=== PATIENT | female | born 1975 | race Caucasian/White ===

== ENCOUNTER 2022-08-28 15:08 | Outpatient (CLI) | payer SELFPAY ==
--- NOTE | 2022-08-28 15:23 | ECG_ITS ---
Measurements Intervals [place] Rate: 60 P: 62 NC: 211 QRS: 56 QRSD: 137 T: 53 QT: 406 QTc: 408 Interpretive Statements SINUS RHYTHM WITH FIRST DEGREE AV BLOCK INCOMPLETE RIGHT BUNDLE BRANCH BLOCK BORDERLINE ECG NO PREVIOUS ECG AVAILABLE FOR COMPARISON Electronically Signed On 08-28-2022 15:50:18 CDT by Marvin Del Rio D.O.
== END 2022-08-28 15:09 | disposition home or self-care (01) ==
PROVIDERS: Referring Provider Family Medicine; Visit Provider Anesthesiology
DX: I44.0 Atrioventricular block, first degree (principal); I45.10 Unspecified right bundle-branch block; F17.210 Nicotine dependence, cigarettes, uncomplicated
CPT/HCPCS: 93005

== ENCOUNTER 2022-09-03 03:11 | Day surgery (SDC) | payer OTHER, SELFPAY ==
[2022-08-24 14:38] VITALS: BMI 22.8
--- NOTE | 2022-08-24 14:57 | PC.NURSE ---
Report to the Outpatient Waiting Room, entrance under the green pavilion located off [facility], at time _0600 on date _09/03/22. Planned Procedure Time: _0730. Time changes happen often and if your time is changed the preop area will call you the afternoon before. - You and your visitor will be asked to self-screen and do not enter if you have any COVID symptoms. - A mask is optional within the hospital at this time. Patients may have clear liquids (water, carbonated beverages, clear teas, apple juice) until 3 hours prior to surgery with a maximum of 20 ounces. - No food from midnight until time of surgery - Infants may have breast milk until 4 hours before surgery, formula 6 hours prior to surgery. - Children will be allowed to drink immediately following surgery. If applicable, please bring a bottle or sippy cup to assist with drinking. Juice, water, soda, and popsicles are readily available. For infants on formula, please bring formula the day of surgery. Pacifiers are allowed. Take the following medications with a SIP of water the morning of surgery: __n/a DO NOT STOP ANY OF YOUR OTHER PRESCRIPTION MEDICATIONS PRIOR TO SURGERY ?EXCEPT THE FOLLOWING Medications to discontinue per physician __n/a Date to take last dose Please no make-up, nail romansh, hairspray, perfume, deodorant, or body powder the day of surgery. No jewelry (including any body piercings) or valuables the day of surgery, leave them at home. Please take a shower or bath the night before, or the morning of, surgery with an antibacterial soap. Wear comfortable, loose fitting clothing. Children are encouraged to wear pajamas. - Jewelry must be removed prior to entering the operating room. Rings and piercings that are not removed may be cut off. - The hospital will not accept responsibility for valuables. - Please leave all valuables, including medications, at home the day of surgery. If you are going home after surgery, a licensed fleet driver must drive you home. - NO public transportation without another adult if you receive anesthesia. - We recommend that an adult stay with you for 24 hours following discharge. - We also recommend that you do not drive, make important decision, drink alcoholic beverages, or take any drugs that were not prescribed by your health care provider for at least 24 hours after your discharge time. For Pediatric surgeries, we recommend two adults accompany the child home. Follow any additional instructions given to you from your surgeon. If you or anyone in your household have experienced Covid symptoms in the past week, please notify your surgeon or the nurse liaison at the phone number below for possible testing. Telephone instructions given to Becki Jewell_and asked if any additional questions and then verbalized understanding. Patient advised to call surgeon office or pre surgery nurse liaison [phone] if any additional questions.
[2022-09-03] VITALS (10 sets, daily range): BP systolic 94–123; BP diastolic 54–84; PULSE 64–88; RESP 13–20; TEMP 36.1–36.9; O2SAT 97–100
[2022-09-03] MEDS: LACTATED RINGERS 1,000 ML 30 ML IV CONT ×2 (06:28→11:36)
[2022-09-03 06:37] LABS: Urine Cotinine NEGATIVE
--- NOTE | 2022-09-03 06:58 | P.PNAN_ITS ---
Anes - Initial Pre Proc Eval Procedure: Operation Date: 09/03/22 07:30 Proposed Procedures p Abdominoplasty with Liposuction - Elbert Loredo MD Date/Time: 09/03/22 06:58 Surgeon: Elbert Loredo MD Pre Op Diagnosis: skin laxity Patient Data Age: 47 Gender: F Height: 1.73 m Weight: 66.4 kg Last Vital Signs Temp 36.6 C 09/03/22 06:11 Pulse 64 09/03/22 06:11 Resp 18 09/03/22 06:11 BP 94/64 L 09/03/22 06:11 Pulse Ox 99 09/03/22 06:11 O2 Del Method Room Air 09/03/22 06:11 Allergies Allergy/AdvReac Type Severity Reaction Status Date / Time Penicillins Allergy Intermediate VOMITING Verified 09/03/22 06:41 AND STOMACH CRAMPS Home Medications Medication Instructions Recorded Confirmed Type No Home Medications 08/24/22 09/03/22 History Laboratory Tests 09/03/22 06:12 Cotinine Negative Patient hx anesthesia problems: none Family hx anesthesia problems: none Results Review: All pre-operative results and documents have been reviewed as part of the pre- operative evaluation. [facility] Social History Social History Smoking packs per day: 1 Smoking cigarettes per day: 20.0 Years smoked: 30 Smoking pack-years: 30.00 Smoking status: Former smoker Tobacco type: cigarettes and e-cigarettes/vaping Alcohol intake: current Substance use: never Living arrangements: with family Spiritual care concerns: No Anes - Eval Final PreProcedure Day of Procedure 09/03/22 06:58 Patient weight: normal Heart: regular rate and rhythm Lungs: clear to auscultation Airway: Mallampati scale class II Neurological: alert and oriented Last oral intake: >/= 8 hours ASA classification: II Emergent: no Anesthetic plan: proceed Anesthesia type and monitoring: general ETT and standard monitoring Results Review: All pre-operative results and documents have been reviewed as part of the pre- operative evaluation. Informed Consent: The patient's anesthetic plan and its attendant risks and benefits were discussed with the patient/family/POA. Questions were solicited and answers provided to the satisfaction of the patient/family/POA.
--- NOTE | 2022-09-03 07:14 | WPDHPUPDATE1 ---
History and Physical Update Update Date/Time: 09/03/22 07:14 History and Physical has been reviewed, including an updated exam of the patient. There are NO changes in the patient's condition. Risks, benefits, and alternatives have been discussed and questions answered. Patient agrees to proceed with procedure.
--- NOTE | 2022-09-03 07:14 | W.PM.PROC2 ---
Procedure Note - Detailed Date of Procedure 09/03/22 Pre-op Diagnosis skin laxity Post-op Diagnosis Same Procedure Performed Progressive tension abdominoplasty with suction lipectomy Surgeon Elbert Loredo MD Anesthesia General Findings Lipoaspirate: 1250 cc Tissue removed: 714 grams Description of Procedure They are here today for abdominoplasty. Previously and again today the risks, benefits, alternatives were discussed in extensive detail. I wanted them to be very realistic about the risks involved as well as expectations. We discussed aftercare and what to monitor for. I was very upfront about the risks of wound breakdown leading to loss of skin, open wounds, and need for additional procedures with permanent abdominal deformity. We discussed DVT/PE risks and management. Made sure answered all of their questions to their satisfaction today and consent was obtained. They were marked in the preoperative holding area with their verification. The patient was taken to the operating room placed supine on the operating table. Anesthesia was provided by anesthesiology. A Lubin catheter was started. They were prepped and draped in a standard sterile fashion. A surgical time-out was taken. I placed the patient in a flexed position to verify the upper and lower markings would reach. I then placed supine. A thorough abdominal examination was completed. Stab incisions were made and tumescent solution infiltrated. Once adequate time was allowed for hemostasis a 5mm basket cannula was utilized in conjunction with 3mm multi hole cannula to complete suction lipectomy based on S.A.F.E. technique in multiple planes and passes. There were turned to bilateral lateral decubitus position with care taken to protect them for injury during this process. Suction lipectomy continued to result based on pre-operative planning, intra-operative observation, and rolling pinch test which were in full agreement. A 10 blade was used to make the upper incision. I continued dissection down to the level of fascia. Elevated just what was necessary for repair of the diastasis. I then again flexed the bed to verify the upper skin flap would reach the lower markings without tension. Once verified I placed her supine once again and a 10 blade used to make the lower incision. I elevated up to level the umbilicus and left the umbilicus intact on a well-vascularized stalk. The intervening tissue was removed. A 2 mm blunt cannula with 0.5% bupivicaine was injected deep to the fascia bilaterally. I plicated the diastasis recti using 0 PDO stratafix barbed suture. This was in 2 separate layers using 2 separate sutures as well. I repaired around the umbilicus leaving plenty of room for well-vascularized stalk of the umbilicus with 2-0 PDS. I also repaired lateral to the rectus using two layers of 0 PDO stratafix. The patient was flexed and starting from superior to inferior began plication using 2-0 Vicryl to obliterate all space in a standard progressive tension fashion. At the umbilicus I marked out the location of the skin and inset this with 3-0 Monocryl and 4-0 Vicryl. I continued the remainder of the plication using 2-0 Vicryl until I reached my lower planned scar line. I trimmed any excess skin of the upper flap making sure this was a tension-free closure. 15 Jacky drain placed. I then approximated using a 3 point suture with 2-0 Vicryl followed by 3-0 stratafix ,running subcuticular 4-0 Monocryl, and tissue glue. Fluffs and an abdominal binder were placed. The patient was transferred to the bed in a flexed position. Aw[place] and taken to the PACU without difficulty. All instrument and sponge counts were correct at the end of the case. Estimated Blood Loss 75 Drains Yes (15 Jacky) Packing No Pathology None sent Complications No immediate complications Condition Stable Disposition PACU
[2022-09-03] MEDS: TRANEXAMIC ACID 1,000MG/ISO100 1,000 MG/100 ML BAG 200 MG IVPB (07:20)
[2022-09-03] MEDS: SCOPOLAMINE 1.5 MG PATCH TRANSDERM (07:22)
[2022-09-03] MEDS: ceFAZolin 2 GM/D5W 50 ML 2 GM/50 ML BAG IVPB (07:30)
[2022-09-03] MEDS: BUPIVACAINE/EPINEPHRINE 0.25% 10 ML VIAL 60 ML INFILTRATE (08:25)
[2022-09-03] MEDS: HYDROmorphone HCL INJ (*CRX) 1 MG/ML SYR 0.5 MG IV PUSH ×2 (12:13→12:23)
--- NOTE | 2022-09-03 12:50 | ADMGEN ---
This patient, Becki Jewell, was admitted to OB 2nd Floor Room 289-00. Patient/family oriented to hospital policies and general routines including ID bracelet, bed and alarms, visiting hours, pain management, procedures, bathroom and other care routines, personal items, smoking policy, room service/diet, and visiting hours. Information on how to activate the Rapid Response Team has been discussed. Patient/Family are encouraged to report perceived risks to care and to ask questions if they do not understand what they are told or what they should do.
[2022-09-03] MEDS: LACTATED RINGERS 1,000 ML 125 ML IV CONT (13:20)
[2022-09-03] MEDS: KETOROLAC 10 MG TABLET PO ×2 (14:20→20:38)
[2022-09-03] MEDS: carisoprodoL (*CRX) 350 MG TABLET PO ×2 (14:20→20:39)
[2022-09-03] MEDS: oxyCODONE/ACETAMINOPHEN (*CRX) 5-325 MG TABLET PO (17:44)
[2022-09-03] MEDS: ENOXAPARIN 40 MG/0.4 ML SYRINGE SUB-Q (17:44)
[2022-09-03] MEDS: DOCUSATE SODIUM 100 MG CAPSULE PO (20:37)
[2022-09-04 02:50] VITALS: BP 98/56; PULSE 74; RESP 16; TEMP 36.7
--- NOTE | 2022-09-04 02:50 | PC.NURSE ---
During meditech downtime, this patient received her scheduled doses of Soma and Toradol 30mg PO at 0250 on 09/04/22.
[2022-09-04] MEDS: oxyCODONE/ACETAMINOPHEN (*CRX) 5-325 MG TABLET PO (07:10)
--- NOTE | 2022-09-04 07:19 | WPDPN ---
Progress Note: A&P Assessment and Plan (1) Skin laxity: Code(s): L57.4 - Cutis laxa senilis Status: Acute Assessment and Plan: Doing well after progressive tension abdominoplasty with suction lipectomy. Will discharge home. Today we had a lengthy discussion about the care. Activity limitations. What to monitor for. This was a lengthy open ended conversation making sure they were well informed. We discussed what is an emergency and when to proceed to the ER / dial 911. They voiced a clear understanding. Will see her back. Call with any questions or concerns. (2) Localized adiposity: Code(s): E65 - Localized adiposity Status: Acute Subjective Date/time seen: 09/04/22 07:19 Interval history: Doing well after progressive tension abdominoplasty with suction lipectomy. Pain controlled. NO n/v. No f/c. No SOB. No CP. No calf tenderness. Review of Systems Review of Systems: All systems reviewed & are unremarkable except as noted in HPI and below Exam Narrative: Alert & Oriented NOD Respiratory unlabored Abdomen is healing well. No signs of infection. No hematoma. No seroma. Good color and capillary refill. No calf tenderness. Negative Georgina's Objective Data Vital Signs Vital Signs: Vital Signs - 24 hr 09/03/22 11:40 09/03/22 11:50 09/03/22 12:00 Temperature 36.1 C L Pulse Rate 87 88 88 Respiratory Rate 13 20 20 Blood Pressure 103/54 L 116/76 117/84 Pulse Oximetry 100 100 99 Oxygen Delivery Simple Face Mask Simple Face Mask Room Air Oxygen Flow Rate 8 8 09/03/22 12:15 09/03/22 12:30 09/03/22 12:40 Temperature 36.7 C 36.1 C L Pulse Rate 86 88 85 Respiratory Rate 18 18 18 Blood Pressure 117/81 123/79 121/77 Pulse Oximetry 99 98 97 Oxygen Delivery Room Air Room Air Room Air Oxygen Flow Rate 09/03/22 13:00 09/03/22 13:00 09/03/22 15:35 Temperature 36.4 C 36.9 C Pulse Rate 86 76 Respiratory Rate 16 16 Blood Pressure 119/78 114/72 Pulse Oximetry 98 100 Oxygen Delivery Room Air Oxygen Flow Rate 09/03/22 16:00 09/03/22 20:30 09/04/22 02:50 Temperature 36.7 C 36.7 C Pulse Rate 85 74 Respiratory Rate 18 16 Blood Pressure 106/68 98/56 L Pulse Oximetry Oxygen Delivery Room Air Oxygen Flow Rate Intake/Output Intake/Output: Intake & Output 09/01/22 09/02/22 09/03/22 09/04/22 23:59 23:59 23:59 23:59 Intake Total 2540 1000 Output Total 3290 Balance -750 1000 Meds/Results Medications: Active Medications Generic Name Dose Route Start Last Admin Trade Name Freq PRN Reason Stop Dose Admin Carisoprodol 350 mg 09/03/22 12:00 09/03/22 20:39 Carisoprodol (*Crx) 350 Mg Tablet PO 350 mg Q6HR SANIA Administration Diazepam 5 mg 09/03/22 11:17 Diazepam (*Crx) 5 Mg Tablet PO TID PRN Anxiety Docusate Sodium 100 mg 09/03/22 21:00 09/03/22 20:37 Docusate Sodium 100 Mg Capsule PO 100 mg Q12HR SANIA Administration Enoxaparin Sodium 40 mg 09/03/22 18:00 09/03/22 17:44 Enoxaparin 40 Mg/0.4 Ml Syringe SUB-Q 40 mg DAILY SANIA Administration Lactated Ringer's 1,000 mls @ 125 mls/hr 09/03/22 11:20 09/04/22 06:51 Lr - Lactated Ringers Iv IV CONT Not Given .Q8H SANIA Ketorolac Tromethamine 10 mg 09/03/22 12:00 09/03/22 20:38 Ketorolac 10 Mg Tablet PO 09/05/22 06:01 10 mg Q6HR SANIA Administration Morphine Sulfate 2 mg 09/03/22 11:17 Morphine Sulfate (*Crx) 2 Mg/Ml Inj IV PUSH Q2H PRN Pain Ondansetron HCl 4 mg 09/03/22 11:17 Ondansetron Inj 4 Mg/2 Ml Vial IV PUSH Q6H PRN Nausea Oxycodone/Acetaminophen 1 - 2 tablet 09/03/22 11:17 09/03/22 17:44 Oxycodone/Acetaminophen (*Crx) 5-325 Mg Tablet PO 1 tablet Q6H PRN Administration Pain Rated 3-10
--- NOTE | 2022-09-04 07:22 | P.DS_ITS ---
DS: Admitting Diagnosis Discharge Date 09/04/2022 Admitting Diagnosis Skin laxity Localized adiposity DS: Discharge Diagnosis Discharge Diagnosis (1) Skin laxity: Code(s): L57.4 - Cutis laxa senilis Status: Acute (2) Localized adiposity: Code(s): E65 - Localized adiposity Status: Acute DS: Summary Hospital Course Hospital Course: Underwent progressive tension abdominoplasty with suction lipectomy. Postoperativly has done well. Will discharge home. Time Spent with Patient Time attestation: Total time spent providing and/or coordinating discharge services: Exam Narrative: Alert & Oriented NOD Respiratory unlabored Abdomen is healing well. No signs of infection. No hematoma. No seroma. Good color and capillary refill. No calf tenderness. Negative Georgina's Discharge Plan Discharge Patient Disposition: Home, Self-Care Discharge Instructions: POST OPERATIVE DISCHARGE INSTRUCTIONS ELBERT LOREDO M.D. [facility] [address] [place] [address] * No driving for 24 hours after anesthesia and while you are taking pain medication. * Take all prescribed medication as directed * Diet as tolerated. * No lifting or activity that raises blood pressure for 48 hours. * Regular walking / ambulation. * May shower 24 hours after surgery. Once you shower do not take pain medication before showering as the combination of medication and heat may cause you to feel dizzy or pass out. * No pools or tubs for 2 weeks. * Slowly stand up straight as tolerated. * No straining or lifting more than 20 pounds. * If no bowel movement within 24 hours may use laxative. * Call with any questions or concerns. * Dressing Care: Continue abdominal binder / foam 23 hours per day. * Remove the Scopolamine patch that was placed behind your ear in 72 hours or less. Wash your hands after touching. If you have any questions or concerns, please call the office . If it is after hours you will be directed to the conveyor mechanic exchange. Shortness of breath, chest pain, or other medical emergency dial 911 / proceed to the Emergency Room. Stand Alone Forms: General Discharge Instructions Follow-up/Referrals: Elbert Loredo MD [Physician] - 1 Week Discharge Medications: No Action No Home Medications Other Ambulatory Orders: CA 12 lead EKG (Routine) Timeframe: 3 Weeks Location: Determined by Patient Ordered By: Bradly Joe
--- NOTE | 2022-09-04 07:22 | PM.DS ---
DS: Admitting Diagnosis Discharge Date 09/04/2022 Admitting Diagnosis Skin laxity Localized adiposity DS: Discharge Diagnosis Discharge Diagnosis (1) Skin laxity: Code(s): L57.4 - Cutis laxa senilis Status: Acute (2) Localized adiposity: Code(s): E65 - Localized adiposity Status: Acute DS: Summary Hospital Course Hospital Course: Underwent progressive tension abdominoplasty with suction lipectomy. Postoperativly has done well. Will discharge home. Time Spent with Patient Time attestation: Total time spent providing and/or coordinating discharge services: Exam Narrative: Alert & Oriented NOD Respiratory unlabored Abdomen is healing well. No signs of infection. No hematoma. No seroma. Good color and capillary refill. No calf tenderness. Negative Georgina's Discharge Plan Discharge Patient Disposition: Home, Self-Care Discharge Instructions: POST OPERATIVE DISCHARGE INSTRUCTIONS ELBERT LOREDO M.D. [facility] [address] [place] [address] No driving for 24 hours after anesthesia and while you are taking pain medication. Take all prescribed medication as directed Diet as tolerated. No lifting or activity that raises blood pressure for 48 hours. Regular walking / ambulation. May shower 24 hours after surgery. Once you shower do not take pain medication before showering as the combination of medication and heat may cause you to feel dizzy or pass out. No pools or tubs for 2 weeks. Slowly stand up straight as tolerated. No straining or lifting more than 20 pounds. If no bowel movement within 24 hours may use laxative. Call with any questions or concerns. Dressing Care: Continue abdominal binder / foam 23 hours per day. Remove the Scopolamine patch that was placed behind your ear in 72 hours or less. Wash your hands after touching. If you have any questions or concerns, please call the office . If it is after hours you will be directed to the consulting services project manager exchange. Shortness of breath, chest pain, or other medical emergency dial 911 / proceed to the Emergency Room. Stand Alone Forms: General Discharge Instructions Follow-up/Referrals: Elbert Loredo MD [Physician] - 1 Week Discharge Medications: No Action No Home Medications Other Ambulatory Orders: [place] 12 lead EKG (Routine) Timeframe: 3 Weeks Location: Determined by Patient Ordered By: Bradly Joe
[2022-09-04 08:45] VITALS: BP 99/66; PULSE 84; RESP 18; TEMP 37.4; O2SAT 97
[2022-09-04] MEDS: KETOROLAC 10 MG TABLET PO (08:49)
[2022-09-04] MEDS: carisoprodoL (*CRX) 350 MG TABLET PO (08:49)
[2022-09-04] MEDS: DOCUSATE SODIUM 100 MG CAPSULE PO (08:49)
== END 2022-09-04 11:40 | disposition home or self-care (01) ==
LOC: ANHSURGERY 07:23 → ANHOB2 12:44
PROVIDERS: PCP Family Medicine; Visit Provider Surgery Plastic and Reconstructive Surgery
PROC: (CPT 15877; principal; 2022-09-03 07:30)
DX: Z41.1 Encounter for cosmetic surgery (principal); L57.4 Cutis laxa senilis; E65 Localized adiposity; Z87.891 Personal history of nicotine dependence
CPT/HCPCS: 15877; 15830; 15847; 80307; 99199; A9270; J0171; J0690; J1100; J1170; J1650; J2250; J2405; J2704; J3010; J7120